=== PATIENT | female | born 1990 | race Caucasian/White ===

== ENCOUNTER 2022-12-13 21:38 | Outpatient (REF) | payer OTHER, SELFPAY ==
[2022-12-18 10:11] LABS: Age Gdln ACOG Testing Note (.); HPV Aptima Negative (Negative); IGP, Aptima HPV, rfx 16/18,45 Note (.)
== END 2022-12-13 21:39 ==
LOC: LAB 21:38
PROVIDERS: Visit Provider Obstetrics & Gynecology
DX: Z12.4 Encounter for screening for malignant neoplasm of cervix (principal)
CPT/HCPCS: 87624; G0145